=== PATIENT | male | born 1970 | race Caucasian/White ===

== ENCOUNTER 2016-12-12 00:48 | Emergency (ER) ==
[2016-12-12 00:59] VITALS: BP 176/116
--- NOTE | 2016-12-12 01:18 | PROVIDER DOCUMENTATION ---
HPI-Abdominal Pain/GI Problem - General Source: patient - History of Present Illness-ABD Nature of Presenting Problems: 46 y/o M presents to the ED c/o epigastric pain. onset 2100 tonight. some nausea. denies vomiting and all other symptoms. last meal around 1999, mac and cheese and peanut butter sandwich. patient has been seen multiple times for the same pain and was advised on the last visit to have a hida scan done. no other voiced complaints. Abdominal Pain Onset Location: reports: LUQ, epigastric Pain Radiation: reports: no radiation Quality of Pain: reports: aching Severity in ED: reports: moderate Onset/Duration: reports: this evening (2100) Timing: reports: still present Activities at Onset: reports: none Modifying Factors: improves with: nothing Associated Symptoms: reports: nausea Bruising or Bleeding Gums?: No Similar Symptoms Previously?: Yes (11/30/2016) Recently seen or treated by another doctor?: Yes <Riley Rush - Last Filed: 12/12/16 01:20> <David Mcnair - Last Filed: 12/12/16 01:36> - General Chief Complaint: Abdominal Pain Stated Complaint: GALL BLADDER PAIN Time Seen by Provider: 12/12/16 00:58 Allergies/Adverse Reactions: Patient Allergies Allergy/AdvReac Type Severity Reaction Status Date / Time No Known Allergies Allergy Verified 11/30/16 06:36 Home Medications: Home Medication List Medication Instructions Recorded Confirmed Last Taken Type Aspirin [Harvey Aspirin] 81 mg PO DAILY 01/03/15 11/30/16 01/05/15 07:00 History Folic Acid/Mv,Fe,Min [Centrum 1 tab PO DAILY 01/03/15 11/30/16 01/05/15 07:00 History Multivitamin Tab Chew] Furosemide 40 mg PO BID 01/03/15 11/30/16 01/05/15 07:00 History Hydroxyzine 25 mg PO HS 01/03/15 11/30/16 01/04/15 20:00 History Lisinopril 20 mg PO DAILY 01/03/15 11/30/16 01/05/15 06:00 History PRAVAstatin [Pravachol] 40 mg PO DAILY 01/03/15 11/30/16 01/04/15 20:00 History Review of Systems - Adult - REVIEW OF SYSTEMS - ADULT Constitutional: denies: chills, fever Eyes: reports: no symptoms reported Ears, Nose, Mouth & Throat: denies: throat pain, throat swelling Cardiovascular: denies: chest pain, palpitations Respiratory: denies: shortness of breath, wheezing Gastrointestinal: reports: abdominal pain, nausea. denies: diarrhea, vomiting Genitourinary: denies: dysuria, frequency, flank pain Musculoskeletal: denies: bone pain, back pain Integumentary: denies: hives, rash Neurological: denies: dizziness/vertigo, headache/migraines Psychiatric: reports: no symptoms reported Endocrine: reports: no symptoms reported Hematologic/Lymphatic: reports: no symptoms reported Allergic/Immunologic: reports: no symptoms reported <Riley Rush - Last Filed: 12/12/16 01:20> Past History - Adult - PAST MEDICAL HISTORY-ADULT Review of Records: reports: Nursing Assessment Review, Medications Reviewed, Social history reviewed & non-contributory. Major Childhood Illnesses: reports: denies history Cardiovascular: reports: HTN, hyperlipidemia Respiratory: reports: sleep apnea Gastrointestinal: reports: GERD Obstetrical/Gynecological: reports: denies history Genitourinary: reports: denies history Musculoskeletal: reports: denies history Neurological: reports: denies history Psychiatric: reports: denies history Endocrine/Immune: reports: denies history Other Conditions: reports: denies history - PRIOR SURGERIES/PROCEDURES Surgical/Procedure History: reports: none - IMMUNIZATION STATUS Childhood Immunizations: See Nurse Assessment Flu Vaccine: See Nurse Assessment - SOCIAL HISTORY Smoking: denies Substance Use: none/never Alcohol Use Frequency: never <Riley Rush - Last Filed: 12/12/16 01:20> Physical Exam-General - PHYSICAL EXAM-ADULT Initial Vital Signs Reviewed: Yes - CONSTITUTIONAL General Appearance: alert, no apparent distress, obese, anxious - EYES Eyes: PERRL/EOMI, pink conjunctivae - HEAD, EARS, NOSE, MOUTH & THROAT HENMT: moist mucous membranes, normal ENT inspection - NECK Neck: full range of motion, normal inspection - RESPIRATORY Respiratory: lungs clear, normal breath sounds, no respiratory distress, no accessory muscle use - CARDIOVASCULAR Cardiovascular: normal peripheral pulses, regular rate, rhythm - GASTROINTESTINAL (ABDOMEN) Abdominal Exam: normal bowel sounds, soft, tenderness (RUQ) - MUSCULOSKELETAL Extremity: normal range of motion, normal inspection - SKIN Integumentary: normal color, warm/dry - NEUROLOGIC Neurologic: chiropractic doctor II-XII nml as tested, no motor/sensory deficits - PSYCHIATRIC Psych/Mental Status: normal mood/affect, oriented x 3 <Riley Rush - Last Filed: 12/12/16 01:20> Progress - PLAN OF CARE/RESULTS Progress/Plan/Lab Results: patient will receive medication for the pain. advised to follow up with [facility] to have a hida scan. patient verbally agrees and understands discharge instructions. <Riley Rush - Last Filed: 12/12/16 01:20> Departure - Departure Time of Disposition Order: 01:23 Certified Medical Emergency: Emergent <Riley Rush - Last Filed: 12/12/16 01:20> - Departure Time of Disposition Order: 01:30 Certified Medical Emergency: Emergent <David Mcnair - Last Filed: 12/12/16 01:36> - Departure DIAGNOSIS: Cholecystitis Disposition: HOME 01 Condition: Fair Additional Instructions: CALL DELIVERY COORDINATOR OR SURGEON FOR APPOINTMENT SOON POSSIBLE AVOID FATTY FOODS EAT ONLY VEGETABLES (potatoes and corn really aren't), FRUIT, BEANS AND LEAN MEAT UNTIL THIS PROBLEM IS RESOLVED Referrals: Sang Somers MD [STAFF PHYSICIAN] - TIARRA BARRAZA CRNP [Primary Care Provider] - Instructions: Cholecystitis, [id number] Attestation - Scribe Verification/Attestation Scribe:: Riley Rush Acting as Scribe for:: David Mcnair Scribe documention review:: This chart was documented by a scribe and accurately reflects the service the provider performed and the decisions made by the provider. <Riley Rush - Last Filed: 12/12/16 01:20> Physician Attestation
[2016-12-12] MEDS ORDERED: MORPHINE IV ONE (01:20)
[2016-12-12] MEDS ORDERED: PHENERGAN IV ONE (01:20)
[2016-12-12] MEDS ORDERED: TORADOL IV ONE (01:20)
[2016-12-12] MEDS ORDERED: SODIUM CHLORIDE 0.9% INJ ONE (01:20)
[2016-12-12] MEDS ORDERED: ZOFRAN IV ONE (01:35)
== END 2016-12-12 02:05 | disposition home or self-care (01) ==
LOC: P.ED 00:48
DX: K81.9 Cholecystitis, unspecified (principal); R10.13 Epigastric pain; R11.0 Nausea; R10.12 Left upper quadrant pain; R10.811 Right upper quadrant abdominal tenderness; I10 Essential (primary) hypertension; E78.5 Hyperlipidemia, unspecified; E66.9 Obesity, unspecified; Z79.82 Long term (current) use of aspirin; Z79.899 Other long term (current) drug therapy
CPT/HCPCS: 96374; 96375; J1885; J2270; J2405; J2550